=== PATIENT | male | born 1960 | race Caucasian/White ===

== ENCOUNTER → 2016-09-12 | Outpatient (CLI) | payer BC ==
--- NOTE | ~2016-09-12 | MR17 ---
[facility] A Service of [facility] RADIOLOGY TEXT RESULTS PATIENT: MARTY PETTIT LOCATION: CEEG : 62 UNIT #: [id number] AGE: [address]: AZUCENA MISTRY SEX: M ORDER DR: [id number] [facility] [address] [place], [place] [address] [id number] O MR#: [id number] Acc #: [id number] NAME: MARTY PETTIT : 1960 SEX: M STUDY DATE/TIME: 09/12/2016 9:39 UNIT: CEEG ROOM: STUDY DESCRIPTION: MR Brain WWo Contrast Attending Physician: Azucena Mistry M.D. Referring Physician: Azucena Mistry M.D. Ordering Physician: Physician Non-Staff Primary Care Physician: Jorge L Roth MRI CENTER REPORT This report is preliminary unless electronic signature is present. EXAM Brain MRI with and without contrast 09/12/2016 PROCEDURE Routine brain MRI with and without contrast. COMPARISON None. CLINICAL HISTORY 25-year history of seizures, evaluation for possible anatomic seizure focus. FINDINGS The brain is structurally normal and brain parenchymal signal is normal. There is no hydrocephalus or extraaxial fluid collection. There is no evidence of intracranial hemorrhage or mass, and postcontrast images show no abnormal enhancement. The hippocampal formations are symmetric in size and signal. IMPRESSION Normal brain MRI with and without contrast including normal seizure protocol imaging. Dictated by... Parveen Alanis M.D. THIS IS AN ELECTRONICALLY VERIFIED REPORT Parveen Alanis M.D. at 09/15/2016 2:17 PM TEV/dj TD: 09/13/2016 10:12 JOB #: [id number] [facility] A Service of [facility] RADIOLOGY TEXT RESULTS PATIENT: MARTY PETTIT LOCATION: CEEG : 62 UNIT #: [id number] AGE: [address]: AZUCENA MISTRY SEX: M ORDER DR: MRI CENTER REPORT Page 1 of 1 COPY
--- NOTE | ~2016-09-12 | EE ---
Unit #: [id number] #: [id number] Patient: MARTY PETTIT [id number] [address] [address] [id number] O MR#: [id number] NAME: MARTY PETTIT : 1960 SEX: M STUDY DATE/TIME: 09/12/2016 UNIT: CEEG ROOM: STUDY DESCRIPTION: EEG Attending Physician: Azucena Benavidez M.D. Referring Physician: Azucena Benavidez M.D. Primary Care Physician: Jorge L Charles M.D. NEURODIAGNOSTICS REPORT EXAM EEG REASON FOR STUDY Seizures. [email or web address] TECHNICAL INFORMATION This is a routine EEG performed using the standard International 10-20 System of electrode placement. Photic stimulation was performed. Hyperventilation was also performed. DESCRIPTION Throughout the entire study, the best background rhythm seen is approximately 9-10 Hz. This rhythm is seen in both posterior head regions symmetrically and does attenuate to eye opening and closure. Photic stimulation was performed which did not elicit any epileptiform abnormalities. However, a good photic driving response was seen. Hyperventilation was also performed which failed to reproduce any abnormal build-up. Throughout the entire study, there were no electrographic seizures recorded nor were there any independent epileptiform abnormalities seen. INTERPRETATION This is a normal sleep-deprived EEG. No sleep was recorded during this study. A normal EEG does not rule out the possibility of a seizure disorder. Clinical correlation is advised. Dictated by... Niall Rodriguez II., M.D. GWS/jarek TD: 09/15/2016 12:54 JOB #: [id number] Unit #: [id number] #: [id number] Patient: MARTY PETTIT NEURODIAGNOSTICS REPORT Page 1 of 1 X NEURODIAGNOSTICS REPORT
== END | disposition home or self-care (01) ==
LOC: CEEG 07:20
DX: R56.9 Unspecified convulsions (principal)
CPT/HCPCS: 70553; 95816; A9577